=== PATIENT | female | born 1985 | race Caucasian/White ===

== ENCOUNTER → 2025-01-18 | Outpatient (CLI) | payer SELFPAY ==
--- NOTE | 2025-01-18 09:50 | MASS_PTH ---
PATIENT: BEVERLY TSAI LOC: [facility] U#:[id number] AGE/SX: 39/F ROOM: RE01/18/[address]: Dr. Jose Browne MD : 1985 BED: DIS: 01/18/2025 SPEC #: [id number] RECD: 01/18/25 15:12 STATUS: MIREILLE ALLEGRA #: [id number] ALFREDO: 01/18/25 09:[address]: Jose Browne DEPT: SURGICAL PATHOLOGY RECD BY: Damir Joyce ENTERED: 01/18/25 16:12 SP TYPE: Mass OTHR DR: No Primary Care Phys Tissues: A - Neck, NOS Procedures: Surgery Specimen Level III HEADER OPERATION: Excision left neck mass PRE-OP DIAGNOSIS: Localized swelling, mass and lump, neck TISSUE SUBMITTED: A- Left neck mass MICROSCOPIC DIAGNOSIS A. Skin, left neck, mass, excision: - Epidermal inclusion cyst. MICROSCOPIC DESCRIPTION Slides are reviewed. GROSS DESCRIPTION A. Received in formalin labeled with the patient's name and date of . Designated as left neck mass is a 1.1 x 0.9 x 0.7 cm marcos-white intact cyst surfaced by a 1.6 x 0.8 cm marcos, grossly unremarkable skin ellipse, devoid of orientation. Sectioning reveals marcos-white, iridescent cyst contents. Entirely submitted in 1 cassette. DE 01/18/2025 CPT:69210
== END | disposition home or self-care (01) ==
PROVIDERS: Referring Provider Otolaryngology; Visit Provider Otolaryngology
DX: R22.1 Localized swelling, mass and lump, neck (principal)
CPT/HCPCS: 88304